=== PATIENT | male | born 1980 | race Caucasian/White ===

== ENCOUNTER → 2021-04-05 | Outpatient (CLI) | payer BC ==
[~2021-04-05] VITALS: Ht 2.5 cm; Wt 220.0 kg
== END | disposition home or self-care (01) ==
LOC: DTH 15:49
PROVIDERS: ATTEND Surgery
DX: G47.33 Obstructive sleep apnea (adult) (pediatric) (principal); E66.01 Morbid (severe) obesity due to excess calories; I10 Essential (primary) hypertension; K21.9 Gastro-esophageal reflux disease without esophagitis; K76.0 Fatty (change of) liver, not elsewhere classified
CPT/HCPCS: 97802

== ENCOUNTER → 2021-05-03 | Outpatient (CLI) | payer BC | END | disposition home or self-care (01) | LOC: DTH 09:56 → EDUNIT# 15:00 | PROVIDERS: ATTEND Surgery | DX: G47.33 Obstructive sleep apnea (adult) (pediatric) (principal); E66.01 Morbid (severe) obesity due to excess calories; I10 Essential (primary) hypertension; K21.9 Gastro-esophageal reflux disease without esophagitis; K76.0 Fatty (change of) liver, not elsewhere classified | CPT/HCPCS: 97803 ==

== ENCOUNTER 2021-05-10 06:28 | Day surgery (SDC) | payer BC ==
[~2021-05-10] VITALS: Ht 185.4 cm; Wt 208.7 kg
[2021-05-10 06:30] VITALS: BP 118/70
[2021-05-10] MEDS ORDERED: SODIUM CHLORIDE 0.9% 1000ML 1,000 ML IV ONE (07:09)
[2021-05-10] MEDS ORDERED: PROPOFOL 10 MG/ML 20ML VIAL IV ONE (08:26)
[2021-05-10] MEDS ORDERED: GLYCOPYRROLATE 1 MG/5 ML SYRINGE ONE (08:26)
[2021-05-10] MEDS ORDERED: KETAMINE 50MG/ML SYRINGE 50 MG/ML DISP.SYRIN IV ONE (08:27)
[2021-05-10] MEDS ORDERED: MIDAZOLAM HCL 1 MG/ML 2ML VIAL ONE (08:27)
[2021-05-10 08:40] VITALS: BP 123/75
[2021-05-10 08:55] VITALS: BP 118/67
[2021-05-10 09:10] VITALS: BP 108/67
== END 2021-05-10 09:10 | disposition home or self-care (01) ==
LOC: DAH 06:28 → ENDO 06:28
PROVIDERS: ATTEND Surgery
DX: K21.9 Gastro-esophageal reflux disease without esophagitis (principal); Z20.822 Contact with and (suspected) exposure to COVID-19; G47.30 Sleep apnea, unspecified; E66.01 Morbid (severe) obesity due to excess calories; Z82.49 Family history of ischemic heart disease and other diseases of the circulatory system; Z68.44 Body mass index [BMI] 60.0-69.9, adult
CPT/HCPCS: 43235; 87635; A4215 ×2; A4221; A4222; A4223; A4606; A4620; A4657; A4663; C9803; J2250; J2704; J3490 ×2; J7030

== ENCOUNTER 2021-07-15 05:51 | Inpatient (IN) | payer BC ==
[2021-07-08 14:12] LABS: BASOPHILS % (AUTO) 1.1 % (0.0-5.0); EOSINOPHILS % (AUTO) 2.8 % (0.0-8.0); HEMATOCRIT 41.1 % (42-54); LYMPHOCYTES % (AUTO) 36.5 % (21.0-51.0); MEAN CORPUSCULAR HGB CONC 33.3 g/dL (32.0-36.0); MEAN CORPUSCULAR VOLUME 83.9 fL (79-99); NEUTROPHILS % (AUTO) 53.2 % (40.0-77.0); PLATELET COUNT (AUTO) 316 K/uL (130-400); RED CELL DISTRIBUTION WIDTH 13.3 % (11.0-15.5); WHITE BLOOD COUNT (AUTO) 5.7 K/uL (4.8-10.8)
[2021-07-08 14:20] LABS: CREATININE 0.8 mg/dL (0.5-1.5); POTASSIUM 4.3 mmol/L (3.5-5.1)
[2021-07-08 14:23] LABS: INR 0.97 (0.85-1.15); PROTHROMBIN TIME 10.6 SEC (9.6-11.6)
[2021-07-08 14:25] LABS: PARTIAL THROMBOPLASTIN TIME 25.9 SEC (26.3-35.5)
[2021-07-12 13:51] VITALS: BP 161/94
[~2021-07-15] VITALS: Ht 185.4 cm; Wt 223.2 kg
[2021-07-15] VITALS (25 sets, daily range): BP systolic 111–178; BP diastolic 49–90
[~2021-07-15 05:51] MED LIST: AMOX250L PO
[2021-07-15] MEDS ORDERED: 0.9% NACL 500ML IV.SOLN 500 ML IV SCH (06:00)
[2021-07-15 06:53] LABS: INR 1.07 (0.85-1.15); PROTHROMBIN TIME 11.6 SEC (9.6-11.6)
[2021-07-15] MEDS ORDERED: 0.9%NACL 1000ML 1,000 ML IV ONE (07:01)
[2021-07-15] MEDS ORDERED: BUPIVACAINE/PF 0.5% 30ML VIAL ONE (07:49)
[2021-07-15] MEDS ORDERED: MAGNESIUM SULFATE 1 GM/2 ML VIAL ONE (08:15)
[2021-07-15] MEDS ORDERED: KETAMINE 50MG/ML SYRINGE 50 MG/ML DISP.SYRIN IV ONE (08:15)
[2021-07-15] MEDS ORDERED: DEXMEDETOMIDINE HCL 200 MCG/2 ML VIAL IV ONE (08:16)
[2021-07-15] MEDS: CEFAZOLIN SODIUM 1 GM VIAL IVP SCH ×4 (08:17→21:06)
[2021-07-15] MEDS ORDERED: LIDOCAINE PF 100MG/5ML (2%) SYRINGE 5ML ONE (08:19)
[2021-07-15] MEDS ORDERED: PROPOFOL 10 MG/ML 20ML VIAL IV ONE ×3 (08:19→11:39)
[2021-07-15] MEDS ORDERED: SUCCINYLCHOLINE 200MG/10ML SYR ONE (08:19)
[2021-07-15] MEDS ORDERED: SCOPOLAMINE HYDROBROMIDE 1 EACH ADH..PATCH TD ONE (08:20)
[2021-07-15] MEDS ORDERED: MIDAZOLAM HCL 1 MG/ML 2ML VIAL ONE (08:20)
[2021-07-15] MEDS ORDERED: ROCURONIUM 10MG/1ML SYR 10 MG/ML ML ONE ×4 (08:20→11:40)
[2021-07-15] MEDS ORDERED: ONDANSETRON 4MG INJ ONE ×2 (08:20→09:36)
[2021-07-15] MEDS ORDERED: CEFAZOLIN SODIUM 1 GM VIAL IVP ONE (08:50)
[2021-07-15] MEDS ORDERED: FENTANYL CITRATE PF 50 MCG/1 ML 2ML VIAL ONE ×2 (08:56→10:42)
[2021-07-15] MEDS ORDERED: DEXAMETHASONE SOD PHOSPHATE 10MG/ML 1ML VIAL ONE (08:57)
[2021-07-15] MEDS ORDERED: GLYCOPYRROLATE 1 MG/5 ML SYRINGE ONE (09:09)
[2021-07-15] MEDS ORDERED: EPHEDRINE SULFATE 50 MG/ML AMPULE ONE (09:14)
[2021-07-15] MEDS ORDERED: SUGAMMADEX SODIUM 200 MG/2 ML VIAL IV ONE (11:57)
[2021-07-15] MEDS ORDERED: ONDANSETRON 4MG INJ IVP PRN (12:00)
[2021-07-15] MEDS ORDERED: MORPHINE 5 MG/ML VIAL (5MG OR GREATER DOSE) IVP PRN (12:00)
[2021-07-15] MEDS ORDERED: KETOROLAC 30MG VIAL (30MG/ML) IM PRN (12:00)
[2021-07-15] MEDS ORDERED: MEPERIDINE-PF 25 MG/ML SYG ONE (12:10)
[2021-07-15] MEDS: LACTATED RINGERS 1000ML 1,000 ML IV SCH ×2 (14:14→23:48)
[2021-07-15] MEDS: ENOXAPARIN SODIUM 30 MG/0.3 ML SQ SCH (21:00)
[2021-07-15] MEDS: FAMOTIDINE 20MG VIAL IV SCH (21:06)
[2021-07-16] VITALS: BP 159/80
[2021-07-16] MEDS: CEFAZOLIN SODIUM 1 GM VIAL IVP SCH (03:44)
[2021-07-16 04:00] VITALS: BP 150/81
[2021-07-16 07:17] LABS: HEMATOCRIT 42.6 % (42-54); MEAN CORPUSCULAR HEMOGLOBIN 28.5 pg (27.0-33.0); MEAN CORPUSCULAR HGB CONC 33.6 g/dL (32.0-36.0); MEAN CORPUSCULAR VOLUME 84.9 fL (79-99); PLATELET COUNT (AUTO) 341 K/uL (130-400); RED BLOOD CELL COUNT(AUTO) 5.02 MIL/uL (4.50-6.20); RED CELL DISTRIBUTION WIDTH 13.8 % (11.0-15.5); WHITE BLOOD COUNT (AUTO) 11.7 K/uL (4.8-10.8)
[2021-07-16 07:30] LABS: POTASSIUM 4.1 mmol/L (3.5-5.1)
[2021-07-16 08:00] VITALS: BP 138/84
[2021-07-16 11:14] LABS: BAND NEUTROPHILS % (MANUAL) 1 % (0-2); EOSINOPHILS % (MANUAL) 1 % (1-6); LYMPHOCYTES % (MANUAL) 11 % (22-44); MONOCYTES % (MANUAL) 8 % (2-9); SEGMENTED NEUTROPHILS % 79 % (40-70)
[2021-07-16 11:23] LABS: MAN.DIFF COMMENT-IMPRESSION MANUAL DIFFERENTIAL; PLATELET MORPHOLOGY COMMENT ADEQUATE
[2021-07-16] MEDS: ENOXAPARIN SODIUM 30 MG/0.3 ML SQ SCH ×2 (11:44→21:25)
[2021-07-16] MEDS: LACTATED RINGERS 1000ML 1,000 ML IV SCH (11:44)
[2021-07-16] MEDS: FAMOTIDINE 20MG VIAL IV SCH ×2 (11:44→21:19)
[2021-07-16 12:00] VITALS: BP 156/84
[2021-07-16 17:13] VITALS: BP 151/85
[2021-07-16 20:22] VITALS: BP 137/93
[2021-07-17 00:26] VITALS: BP 132/84
[2021-07-17 03:57] VITALS: BP 143/78
[2021-07-17 05:29] LABS: HEMATOCRIT 40.6 % (42-54); MEAN CORPUSCULAR HEMOGLOBIN 27.4 pg (27.0-33.0); MEAN CORPUSCULAR VOLUME 85.5 fL (79-99); RED BLOOD CELL COUNT(AUTO) 4.75 MIL/uL (4.50-6.20); RED CELL DISTRIBUTION WIDTH 13.9 % (11.0-15.5); WHITE BLOOD COUNT (AUTO) 9.6 K/uL (4.8-10.8)
[2021-07-17 05:46] LABS: CREATININE 0.9 mg/dL (0.5-1.5); MAGNESIUM 1.9 mg/dL (1.80-2.40)
[2021-07-17 08:00] VITALS: BP 129/74
[2021-07-17] MEDS: FAMOTIDINE 20MG VIAL IV SCH (10:24)
[2021-07-17] MEDS: ENOXAPARIN SODIUM 30 MG/0.3 ML SQ SCH (10:26)
[2021-07-17 12:00] VITALS: BP 131/75
== END 2021-07-17 17:45 | disposition home or self-care (01) | DRG 621 ==
LOC: DAHIP 05:51 → EDSTATUS 12:10 → 3DH 13:33
PROVIDERS: ADMIT Surgery; ATTEND Surgery
PROC: 0D164ZA Bypass Stomach to Jejunum, Percutaneous Endoscopic Approach (ICD-10-PCS; principal; 2021-07-15 08:22)
PROC: 0DJ08ZZ Inspection of Upper Intestinal Tract, Via Natural or Artificial Opening Endoscopic (ICD-10-PCS; 2021-07-15 08:22)
DX: E66.01 Morbid (severe) obesity due to excess calories (principal); Z68.44 Body mass index [BMI] 60.0-69.9, adult; Z20.822 Contact with and (suspected) exposure to COVID-19; I10 Essential (primary) hypertension; Z82.49 Family history of ischemic heart disease and other diseases of the circulatory system
CPT/HCPCS: 36415; 36569; 43235; 76937; 80048; 83735; 85025; 85027; 85610; 85730; 86850; 86900; 86901; 87635; 93005; 94660; A4606; G0378; J0330; J0690; J1100; J1650; J1885; J2001; J2175; J2250; J2405; J2704; J3010; J3475; J3490; J7030; J7040; J7120